=== PATIENT | male | born 1935 | race Caucasian/White ===

== ENCOUNTER → 2021-03-01 08:41 | Outpatient (CLI) | payer MEDICARE, OTHER, SELFPAY ==
[2021-03-02 17:41] LABS: SARS-CoV-2 RNA PCR Negative
== END ==
PROVIDERS: PCP Internal Medicine; Visit Provider Internal Medicine
DX: R68.89 Other general symptoms and signs (principal); Z20.822 Contact with and (suspected) exposure to COVID-19
CPT/HCPCS: C9803; U0003; U0005

== ENCOUNTER 2023-05-20 08:58 | Outpatient (CLI) | payer MEDICARE, OTHER, SELFPAY ==
--- NOTE | ~2023-05-20 | US_ITS ---
EXAMINATION: US venous doppler [facility] DATE: 05/20/2023 10:03 INDICATION: Lower limb localized edema. TECHNIQUE: Grayscale ultrasound images without and with compression and Doppler ultrasound images of the bilateral lower extremity veins were obtained. COMPARISON: None. FINDINGS: The visualized portions of right common femoral vein, profunda (deep) femoral vein, femoral vein, pop liteal vein, peroneal veins, posterior tibial veins, and greater saphenous vein outflow are patent. The visualized portions of left common femoral vein, profunda femoral vein, femoral vein, popliteal v ein, peroneal veins, posterior tibial veins, and greater saphenous vein outflow are patent. IMPRESSION: 1. No deep venous thrombosis. Reviewed, dictated and finalized at location A. [employer]
--- NOTE | ~2023-05-20 | XR_ITS ---
Thoracic spine: Clinical Indication: Deforming arthropathy AP and lateral views were performed. No fracture is seen. There is probable mild levoscoliosis of the thoracic spine. The intervertebral d isc spaces appear normal. Paravertebral soft tissues appear normal. Impression: Probable mild levoscoliosis. Reviewed, dictated and finalized at [facility]. [facility] Impression: Probable mild levoscoliosis.
== END 2023-05-20 08:59 | disposition home or self-care (01) ==
PROVIDERS: PCP Family Medicine; Visit Provider Family Medicine
DX: M43.9 Deforming dorsopathy, unspecified (principal); R60.0 Localized edema
CPT/HCPCS: 72072; 93970

== ENCOUNTER 2023-07-03 11:00 | Outpatient (RCR) | payer MEDICARE, OTHER, SELFPAY ==
--- NOTE | 2023-06-04 14:31 | OPREHPOC ---
Outpatient Therapy Plan of Care This is a Multidisciplinary Plan of Care that may contain components documented by all disciplines (PT, OT, and ST.) PT Problem 1 PT Problem #1 Knowledge Deficit PT Goal 1 Goal Pt to be IND with issued HEP Target Visit 8 PT Problem 2 PT Problem #2 Pain PT Goal 1 Goal Pt to report back pain no greater than 3/10 in the last week. Target Visit 8 PT Goal 2 Goal Pt to report 75% improvement in overall symptoms. Target Visit 8 PT Problem 3 PT Problem #3 Impaired Range of Motion PT Goal 1 Goal Pt to improve demar hamstring length to -30 deg Target Visit 8 PT Problem 4 PT Problem #4 Impaired Functional Mobil PT Goal 1 Goal Pt to demonstrates good upright posture during treatment. Target Visit 8
--- NOTE | 2023-06-04 14:32 | PTOPEVAL1 ---
Assessment and note entered by Isa Alcantar, PT, DPT Evaluation Information Assessment Status Evaluation Diagnosis back pain Subjective Information Pt states L sided lower back pain, he states his abdomen is shifting to the right, causing a pull on the L side. He states he has scoliosis, he reports a new onset of this. Pt states he is retired, he was 1 mile and does a few resistance machines 3-4 times a week. He states his pain in intermittent. Reported Pain Level Pain Score 2: Self Report Assessment PT Clinical Summary Pt presents to therapy today for his initial evaluation with a diagnosis of back pain. Today he demonstrates decreased lumbar ROM in all directions, functional scoliosis, decreased hip mobility, and gait deviations. He demonstrates good LE strength and functional balance. Skilled therapy services are indicated to improve spinal mobility, core strength, functional mobility, and to return to PLOF. Plan of Care Interventions Electrical Stimulation,Gait Training,Hot Pack/Cold Pack,Manual Therapy,Neuro Re-education,Patient/ Caregiver Educati,Therapeutic Activities, Therapeutic Exercise PT Services Indicated Yes Treatment Frequency and 1x/wk for 4 visits Duration These treatments will address the objective and functional deficits as defined above. The patient will be advanced safely and appropriately in order for the patient to progress towards his/her prior level of function. Additional exercises will be introduced and as well as a comprehensive home exercise program upon discharge, if needed, ?to ensure carryover of functional gains achieved in the clinic. This treatment plan has been reviewed and agreement upon by the patient.
--- NOTE | 2023-07-03 11:31 | PTOPDC ---
Assessment and note entered by Isa Alcantar, PT, DPT Evaluation Information Assessment Status dishcarge Diagnosis back pain Subjective Information Pt states he still continues to have the L sided low back pain and still reports an abdomen shift. He is diligent with his exercises but feels these have not directly affected his back pain. Reported Pain Level Pain Score 0: Self Report Assessment PT Clinical Summary Pt presents to therapy today for his progress report following 5 visits of skilled therapy to treat his diagnosis of back pain. Today he demonstrates improve hamstring length, mostly pain free ROM, and improved body mechanics. He is IND with his HEP and plans to continue these upon discharge.
== END 2023-07-03 13:13 | disposition home or self-care (01) ==
LOC: ANHGOSHPT 11:00
PROVIDERS: PCP Family Medicine; Visit Provider Family Medicine
DX: M54.9 Dorsalgia, unspecified (principal)
CPT/HCPCS: 97110; 97161; 97530; 97550; 97551